=== PATIENT | female | born 1970 | race Caucasian/White ===

== ENCOUNTER 2017-09-01 13:17 | Emergency (ER) | payer SELFPAY ==
[~2017-09-01] VITALS: Ht 152.4 cm; Wt 66.0 kg
[~2017-09-01 13:17] MED LIST: HYDR-3245 PO; VENTOLIN HFA INH
[2017-09-01 13:19] VITALS: BP 126/78
[2017-09-01] MEDS ORDERED: IBUPROFEN 200 MG TABLET ONE (13:46)
[2017-09-01] MEDS ORDERED: ACETAMINOPHEN 325 MG TABLET ONE (13:46)
[2017-09-01] MEDS ORDERED: IBUPROFEN 200 MG TABLET PO ONE (14:00)
[2017-09-01] MEDS ORDERED: ACETAMINOPHEN 325 MG TABLET PO ONE (14:00)
== END 2017-09-01 14:31 | disposition home or self-care (01) ==
LOC: ED 14:00
DX: H92.02 Otalgia, left ear (principal); H66.002 Acute suppurative otitis media without spontaneous rupture of ear drum, left ear; J20.9 Acute bronchitis, unspecified; G43.909 Migraine, unspecified, not intractable, without status migrainosus; J44.0 Chronic obstructive pulmonary disease with (acute) lower respiratory infection; Z88.0 Allergy status to penicillin
CPT/HCPCS: 71020; 99284

== ENCOUNTER 2017-09-30 23:29 | Emergency (ER) | payer MEDICAID, OTHER ==
[2017-09-30] MEDS ORDERED: ALBU0.63 NEB (23:51)
[2017-10-01] MEDS ORDERED: FAMOTIDINE 20 MG TABLET PO ONE
[2017-10-01] MEDS ORDERED: DIPHENHYDRAMINE 25 MG CAPSULE PO ONE
[2017-10-01] MEDS ORDERED: DIPHENHYDRAMINE 25 MG CAPSULE ONE (00:09)
[2017-10-01] MEDS ORDERED: FAMOTIDINE 20 MG TABLET ONE (00:09)
[2017-10-01 00:20] LABS: BASOPHILS # (AUTO) 0.15 x10^3/uL (0-0.1); BASOPHILS % (AUTO) 2 % (0-1); EOSINOPHILS # (AUTO) 0.14 x10^3/uL (0-0.4); EOSINOPHILS % (AUTO) 1 % (1-7); LYMPHOCYTES # (AUTO) 2.02 x10^3/uL (1-3.4); LYMPHOCYTES % (AUTO) 21 % (22-44); MD NO; MEAN CORPUSCULAR HEMOGLOBIN 28.6 pg (27.0-34.8); MEAN CORPUSCULAR HGB CONC 33.2 g/dL (32.4-35.8); MEAN CORPUSCULAR VOLUME 86.1 fL (80-100); MEAN PLATELET VOLUME 9.2 fL (7.4-10.4); MONOCYTES # (AUTO) 0.74 x10^3/uL (0.2-0.8); MONOCYTES % (AUTO) 8 % (2-9); NEUTROPHILS # (AUTO) 6.64 x10^3/uL (1.8-6.8); NEUTROPHILS % (AUTO) 69 % (42-75); PLATELET COUNT 238 x10^3/uL (130-400); RED BLOOD COUNT 5.01 x10^6/uL (3.82-5.3); RED CELL DISTRIBUTION WIDTH 13.9 % (9.6-15.2)
[2017-10-01 00:30] LABS: ALANINE AMINOTRANSFERASE 32 U/L (12-78); ALBUMIN 3.3 g/dL (3.4-5.0); ANION GAP 6 mmol/L (5-15); CALCIUM 8.5 mg/dL (8.5-10.1); CHLORIDE 109 mmol/L (98-107); CREATININE 1.02 mg/dL (0.55-1.02)
[2017-10-01 00:34] LABS: ALKALINE PHOSPHATASE 70 U/L (45-117); BILIRUBIN,TOTAL 0.3 mg/dL (0.2-1.0); TOTAL PROTEIN 6.9 g/dL (6.4-8.2)
[2017-10-01 02:01] LABS: CULTURE INDICATED? YES; MICROSCOPIC INDICATED
[2017-10-01 03:24] VITALS: BP 116/76
== END 2017-10-01 03:44 | disposition home or self-care (01) ==
LOC: ED 23:59
DX: N30.01 Acute cystitis with hematuria (principal); R10.13 Epigastric pain; T78.1XXA Other adverse food reactions, not elsewhere classified, initial encounter; X58.XXXA Exposure to other specified factors, initial encounter; J44.9 Chronic obstructive pulmonary disease, unspecified; Z59.0 Homelessness
CPT/HCPCS: 36415; 71045; 80053; 81001; 83690; 84703; 85025; 87086; 93005; 99285; Q0163

== ENCOUNTER 2018-02-24 16:39 | Emergency (ER) | payer MEDICAID ==
[~2018-02-24] VITALS: Ht 152.4 cm; Wt 59.1 kg
[~2018-02-24 16:39] MED LIST changes: +ALBU0.63 NEB
[2018-02-24] MEDS ORDERED: SODIUM CHLORIDE FLUSH 10ML SYR IVF ONE (17:00)
[2018-02-24] MEDS ORDERED: SODIUM CHLORIDE 0.9% 1,000ML IVBOLUS ONE (17:00)
[2018-02-24 17:19] LABS: BASOPHILS # (AUTO) 0.02 x10^3/uL (0-0.1); BASOPHILS % (AUTO) 1 % (0-1); EOSINOPHILS # (AUTO) 0.02 x10^3/uL (0-0.4); EOSINOPHILS % (AUTO) 1 % (1-7); LYMPHOCYTES # (AUTO) 1.33 x10^3/uL (1-3.4); LYMPHOCYTES % (AUTO) 34 % (22-44); MD NO; MEAN CORPUSCULAR HEMOGLOBIN 29.3 pg (27.0-34.8); MEAN CORPUSCULAR HGB CONC 33.6 g/dL (32.4-35.8); MEAN CORPUSCULAR VOLUME 87.1 fL (80-100); MEAN PLATELET VOLUME 9.5 fL (7.4-10.4); MONOCYTES # (AUTO) 0.54 x10^3/uL (0.2-0.8); MONOCYTES % (AUTO) 14 % (2-9); NEUTROPHILS # (AUTO) 1.96 x10^3/uL (1.8-6.8); NEUTROPHILS % (AUTO) 51 % (42-75); PLATELET COUNT 180 x10^3/uL (130-400); RED BLOOD COUNT 4.76 x10^6/uL (3.82-5.3); RED CELL DISTRIBUTION WIDTH 13.9 % (9.6-15.2)
[2018-02-24 17:29] LABS: ALANINE AMINOTRANSFERASE 35 U/L (12-78); ALBUMIN 3.3 g/dL (3.4-5.0); ANION GAP 10 mmol/L (5-15); CALCIUM 8.1 mg/dL (8.5-10.1); CHLORIDE 110 mmol/L (98-107)
[2018-02-24 17:31] LABS: ALKALINE PHOSPHATASE 66 U/L (45-117); BILIRUBIN,TOTAL 0.3 mg/dL (0.2-1.0); TOTAL PROTEIN 6.5 g/dL (6.4-8.2)
[2018-02-24 17:48] LABS: TROPONIN I < 0.015 ng/mL (0.000-0.045)
[2018-02-24] MEDS ORDERED: POTASSIUM CHLORIDE 20 MEQ TAB.ER.PRT PO ONE (18:30)
[2018-02-24] MEDS ORDERED: POTASSIUM CHLORIDE 20 MEQ TAB.ER.PRT ONE (18:52)
[2018-02-24 18:55] VITALS: BP 104/62
== END 2018-02-24 19:55 | disposition home or self-care (01) ==
LOC: ED 17:14
DX: E86.0 Dehydration (principal); I95.9 Hypotension, unspecified; J44.9 Chronic obstructive pulmonary disease, unspecified
CPT/HCPCS: 36415; 80053; 84484; 85025; 93005; 96360; 96361; 99285; J7030

== ENCOUNTER 2018-02-26 11:39 | Emergency (ER) | payer MEDICAID ==
[~2018-02-26] VITALS: Ht 152.4 cm; Wt 63.6 kg
[2018-02-26] MEDS ORDERED: SODIUM CHLORIDE 0.9% 1,000 ML IV ONE (11:51)
[2018-02-26] MEDS ORDERED: SODIUM CHLORIDE 0.9% 1,000ML IVBOLUS ONE (12:00)
[2018-02-26] MEDS ORDERED: SODIUM CHLORIDE FLUSH 10ML SYR IVF ONE (12:00)
[2018-02-26] MEDS ORDERED: MECLIZINE CHEWABLE 25 MG TAB PO ONE (12:00)
[2018-02-26] MEDS ORDERED: MECLIZINE CHEWABLE 25 MG TAB ONE (12:03)
[2018-02-26 12:25] LABS: BASOPHILS # (AUTO) 0.05 x10^3/uL (0-0.1); BASOPHILS % (AUTO) 1 % (0-1); EOSINOPHILS # (AUTO) 0.06 x10^3/uL (0-0.4); EOSINOPHILS % (AUTO) 1 % (1-7); INTERNATIONAL NORMALIZED RATIO 1.01 (0.93-1.1); LYMPHOCYTES # (AUTO) 2.27 x10^3/uL (1-3.4); LYMPHOCYTES % (AUTO) 35 % (22-44); MD NO; MEAN CORPUSCULAR HGB CONC 33.3 g/dL (32.4-35.8); MEAN CORPUSCULAR VOLUME 87.1 fL (80-100); MEAN PLATELET VOLUME 9.7 fL (7.4-10.4); MONOCYTES # (AUTO) 0.42 x10^3/uL (0.2-0.8); MONOCYTES % (AUTO) 7 % (2-9); NEUTROPHILS # (AUTO) 3.63 x10^3/uL (1.8-6.8); NEUTROPHILS % (AUTO) 56 % (42-75); PLATELET COUNT 190 x10^3/uL (130-400); PROTHROMBIN TIME 10.4 Seconds (9.6-11.5); RED CELL DISTRIBUTION WIDTH 14.1 % (9.6-15.2)
[2018-02-26 12:29] LABS: ALBUMIN 3.4 g/dL (3.4-5.0); ANION GAP 8 mmol/L (5-15); CALCIUM 8.4 mg/dL (8.5-10.1); CHLORIDE 109 mmol/L (98-107)
[2018-02-26 12:38] LABS: ALANINE AMINOTRANSFERASE 31 U/L (12-78); ALKALINE PHOSPHATASE 65 U/L (45-117); BILIRUBIN,TOTAL 0.3 mg/dL (0.2-1.0); CREATININE 0.62 mg/dL (0.55-1.02); TOTAL PROTEIN 6.9 g/dL (6.4-8.2)
[2018-02-26 14:16] VITALS: BP 120/67
== END 2018-02-26 14:29 | disposition home or self-care (01) ==
LOC: ED 13:50
DX: I95.9 Hypotension, unspecified (principal); F17.200 Nicotine dependence, unspecified, uncomplicated; F32.9 Major depressive disorder, single episode, unspecified; J44.9 Chronic obstructive pulmonary disease, unspecified; Z79.899 Other long term (current) drug therapy
CPT/HCPCS: 36415; 71045; 80053; 83605; 85025; 85610; 85730; 93005; 96360; 99285; J7030

== ENCOUNTER 2018-03-03 14:10 | Inpatient (IN) | payer MEDICAID ==
[~2018-03-03] VITALS: Ht 152.4 cm; Wt 61.4 kg
[2018-03-03] MEDS ORDERED: SODIUM CHLORIDE FLUSH 10ML SYR IVF ONE (14:30)
[2018-03-03] MEDS ORDERED: SODIUM CHLORIDE 0.9% 1,000ML IVBOLUS ONE ×2 (14:30→19:30)
[2018-03-03 14:56] LABS: ALANINE AMINOTRANSFERASE 25 U/L (12-78); ALBUMIN 2.9 g/dL (3.4-5.0); ANION GAP 8 mmol/L (5-15); CHLORIDE 110 mmol/L (98-107); CREATININE 0.69 mg/dL (0.55-1.02)
[2018-03-03 15:05] LABS: ALKALINE PHOSPHATASE 56 U/L (45-117); BILIRUBIN,TOTAL 0.2 mg/dL (0.2-1.0); TOTAL PROTEIN 6.2 g/dL (6.4-8.2); TROPONIN I < 0.015 ng/mL (0.000-0.045)
[2018-03-03] MEDS ORDERED: SODIUM CHLORIDE 0.9%, 500ML IVBOLUS ONE (15:30)
[2018-03-03] MEDS ORDERED: POTASSIUM CHLORIDE 20 MEQ TAB.ER.PRT PO ONE (15:30)
[2018-03-03] MEDS ORDERED: POTASSIUM CHLORIDE 20 MEQ TAB.ER.PRT ONE (16:35)
[2018-03-03 18:09] LABS: CULTURE INDICATED? YES; MICROSCOPIC INDICATED
[2018-03-03 19:35] LABS: BASOPHILS # (AUTO) 0.04 x10^3/uL (0-0.1); BASOPHILS % (AUTO) 1 % (0-1); EOSINOPHILS # (AUTO) 0.18 x10^3/uL (0-0.4); EOSINOPHILS % (AUTO) 3 % (1-7); LYMPHOCYTES # (AUTO) 2.57 x10^3/uL (1-3.4); LYMPHOCYTES % (AUTO) 38 % (22-44); MD NO; MEAN CORPUSCULAR HGB CONC 33.2 g/dL (32.4-35.8); MEAN CORPUSCULAR VOLUME 87.3 fL (80-100); MEAN PLATELET VOLUME 10.1 fL (7.4-10.4); MONOCYTES # (AUTO) 0.63 x10^3/uL (0.2-0.8); MONOCYTES % (AUTO) 9 % (2-9); NEUTROPHILS # (AUTO) 3.32 x10^3/uL (1.8-6.8); NEUTROPHILS % (AUTO) 49 % (42-75); PLATELET COUNT 219 x10^3/uL (130-400); RED CELL DISTRIBUTION WIDTH 13.6 % (9.6-15.2)
[2018-03-03] MEDS ORDERED: ONDANSETRON ODT 4 MG PO PRN (20:30)
[2018-03-03] MEDS ORDERED: ONDANSETRON 2MG/ML, 2ML IVPush PRN (20:30)
[2018-03-03] MEDS ORDERED: NICOTINE 14MG/24 HR PATCH.TD24 TD SCH (20:30)
[2018-03-03] MEDS ORDERED: DOCUSATE 100 MG CAPSULE PO PRN (20:30)
[2018-03-03 21:20] VITALS: BP 112/73
[2018-03-03] MEDS: FAMOTIDINE 20 MG/2 ML IVPush SCH (23:37)
[2018-03-03] MEDS: NS + 20MEQ KCL 1,000 ML IV SCH (23:37)
[2018-03-04] VITALS (10 sets, daily range): BP systolic 86–106; BP diastolic 52–69
[2018-03-04 06:09] LABS: CHLORIDE 116 mmol/L (98-107)
[2018-03-04 06:10] LABS: BASOPHILS # (AUTO) 0.04 x10^3/uL (0-0.1); BASOPHILS % (AUTO) 1 % (0-1); EOSINOPHILS # (AUTO) 0.11 x10^3/uL (0-0.4); EOSINOPHILS % (AUTO) 2 % (1-7); LYMPHOCYTES # (AUTO) 2.06 x10^3/uL (1-3.4); LYMPHOCYTES % (AUTO) 32 % (22-44); MD NO; MEAN CORPUSCULAR HEMOGLOBIN 29.4 pg (27.0-34.8); MEAN CORPUSCULAR HGB CONC 33.4 g/dL (32.4-35.8); MEAN PLATELET VOLUME 10.5 fL (7.4-10.4); MONOCYTES # (AUTO) 0.56 x10^3/uL (0.2-0.8); MONOCYTES % (AUTO) 9 % (2-9); NEUTROPHILS # (AUTO) 3.72 x10^3/uL (1.8-6.8); NEUTROPHILS % (AUTO) 57 % (42-75); PLATELET COUNT 178 x10^3/uL (130-400); RED BLOOD COUNT 4.47 x10^6/uL (3.82-5.3)
[2018-03-04 06:22] LABS: ALANINE AMINOTRANSFERASE 64 U/L (12-78); ALBUMIN 2.6 g/dL (3.4-5.0); ALKALINE PHOSPHATASE 49 U/L (45-117); ANION GAP 8 mmol/L (5-15); BILIRUBIN,TOTAL 0.4 mg/dL (0.2-1.0); CALCIUM 7.9 mg/dL (8.5-10.1); CREATININE 0.77 mg/dL (0.55-1.02); TOTAL PROTEIN 5.6 g/dL (6.4-8.2); TROPONIN I < 0.015 ng/mL (0.000-0.045)
[2018-03-04] MEDS: NS + 20MEQ KCL 1,000 ML IV SCH (07:27)
[2018-03-04] MEDS: FAMOTIDINE 20 MG/2 ML IVPush SCH ×2 (08:58→20:16)
[2018-03-04] MEDS: NICOTINE GUM 2 MG BC PRN ×5 (08:59→20:16)
[2018-03-04] MEDS: ACETAMINOPHEN 325 MG TABLET PO PRN ×3 (09:10→20:16)
[2018-03-04] MEDS: CEFTRIAXONE PMX 2GM/50ML 50 ML IV SCH (12:17)
[2018-03-04] MEDS: FLUTICASONE/VILANTEROL 200-25MCG/INH INH SCH (13:10)
[2018-03-04] MEDS: ENOXAPARIN 40 MG/0.4 ML SQ SCH (15:07)
[2018-03-05] VITALS (12 sets, daily range): BP systolic 80–120; BP diastolic 51–71
[2018-03-05] MEDS: ACETAMINOPHEN 325 MG TABLET PO PRN ×3 (04:59→13:09)
[2018-03-05] MEDS: NICOTINE GUM 2 MG BC PRN ×6 (05:05→23:01)
[2018-03-05] MEDS: FLUTICASONE/VILANTEROL 200-25MCG/INH INH SCH (08:56)
[2018-03-05] MEDS: FAMOTIDINE 20 MG/2 ML IVPush SCH ×2 (08:57→20:32)
[2018-03-05] MEDS: CEFTRIAXONE PMX 2GM/50ML 50 ML IV SCH (12:15)
[2018-03-05] MEDS ORDERED: ERGOCALCIFEROL 50,000 UNIT CAPSULE PO SCH (14:00)
[2018-03-05] MEDS: BUTALB/APAP/CAFFEINE 50MG/325MG/40MG PO PRN (14:38)
[2018-03-05] MEDS: ENOXAPARIN 40 MG/0.4 ML SQ SCH (14:41)
[2018-03-05] MEDS: SODIUM CHLORIDE 0.9% 1,000 ML IV SCH ×2 (15:55→22:41)
[2018-03-05] MEDS: FAMOTIDINE 20 MG TABLET PO SCH (20:42)
[2018-03-05] MEDS ORDERED: TEMAZEPAM 15 MG CAPSULE ONE (22:59)
[2018-03-05] MEDS: TEMAZEPAM 15 MG CAPSULE PO PRN (23:01)
[2018-03-06] VITALS (11 sets, daily range): BP systolic 88–115; BP diastolic 56–76
[2018-03-06] MEDS: BUTALB/APAP/CAFFEINE 50MG/325MG/40MG PO PRN ×4 (00:50→21:03)
[2018-03-06] MEDS: NICOTINE GUM 2 MG BC PRN ×5 (01:08→20:56)
[2018-03-06] MEDS: SODIUM CHLORIDE 0.9% 1,000 ML IV SCH ×3 (05:50→19:20)
[2018-03-06] MEDS: FLUTICASONE/VILANTEROL 200-25MCG/INH INH SCH (09:00)
[2018-03-06] MEDS: FAMOTIDINE 20 MG/2 ML IVPush SCH ×2 (09:00→19:43)
[2018-03-06] MEDS: FAMOTIDINE 20 MG TABLET PO SCH ×2 (09:08→20:56)
[2018-03-06] MEDS: CEFTRIAXONE PMX 2GM/50ML 50 ML IV SCH (12:46)
[2018-03-06] MEDS: ENOXAPARIN 40 MG/0.4 ML SQ SCH (14:04)
[2018-03-06] MEDS: TEMAZEPAM 15 MG CAPSULE PO PRN (21:03)
[2018-03-07 01:18] VITALS: BP_SYST 100; BP_SYST 86; BP_SYST 93; BP_DIAS 56; BP_DIAS 61; BP_DIAS 64
[2018-03-07] MEDS: SODIUM CHLORIDE 0.9% 1,000 ML IV SCH ×2 (02:08→10:16)
[2018-03-07 07:10] VITALS: BP 94/61
[2018-03-07 08:42] VITALS: BP 104/75
[2018-03-07 08:46] VITALS: BP 100/67
[2018-03-07 08:49] VITALS: BP 94/60
[2018-03-07] MEDS: FLUTICASONE/VILANTEROL 200-25MCG/INH INH SCH (08:50)
[2018-03-07] MEDS: FAMOTIDINE 20 MG/2 ML IVPush SCH (08:50)
[2018-03-07] MEDS: FAMOTIDINE 20 MG TABLET PO SCH (08:50)
[2018-03-07] MEDS ORDERED: FLUT1BLS INH (10:06)
[2018-03-07] MEDS ORDERED: CEFD300C37 PO (10:06)
[2018-03-07] MEDS ORDERED: ERGO500017 PO (10:06)
[2018-03-07] MEDS: NICOTINE GUM 2 MG BC PRN ×2 (10:15→12:18)
[2018-03-07] MEDS: BUTALB/APAP/CAFFEINE 50MG/325MG/40MG PO PRN (10:49)
[2018-03-07] MEDS: CEFTRIAXONE PMX 2GM/50ML 50 ML IV SCH (12:18)
[2018-03-07 13:00] VITALS: BP 95/62
== END 2018-03-07 16:48 | disposition home or self-care (01) | DRG 312 ==
LOC: ED 18:36 → EDIP 20:11 → 4WST 21:11
PROVIDERS: ADMIT Internal Medicine; ATTEND Internal Medicine
DX: R55 Syncope and collapse (principal); E43 Unspecified severe protein-calorie malnutrition; N39.0 Urinary tract infection, site not specified; F32.9 Major depressive disorder, single episode, unspecified; E55.9 Vitamin D deficiency, unspecified; E86.0 Dehydration; E86.1 Hypovolemia; E87.6 Hypokalemia; F17.210 Nicotine dependence, cigarettes, uncomplicated; F41.9 Anxiety disorder, unspecified; R11.2 Nausea with vomiting, unspecified; M25.561 Pain in right knee; G89.4 Chronic pain syndrome; I95.0 Idiopathic hypotension; J44.9 Chronic obstructive pulmonary disease, unspecified; Z88.0 Allergy status to penicillin
CPT/HCPCS: 36415; 70450; 71046; 80053; 81001; 82306; 82533; 82607; 83735; 84100; 84443; 84484; 85025; 87040; 87077; 87086; 87186; 93005; 96360; 96361; 99285; J0696; J1650; J3480; Q0162; J7030; J7040; S0028

== ENCOUNTER 2018-05-25 17:11 | Emergency (ER) | payer MEDICAID ==
[~2018-05-25] VITALS: Ht 152.4 cm; Wt 60.0 kg
[~2018-05-25 17:11] MED LIST changes: +CEFD300C37 PO; +ERGO500017 PO; +FLUT1BLS INH
[2018-05-25 17:28] VITALS: BP 118/83
[2018-05-25] MEDS ORDERED: ACETAMINOPHEN 325 MG TABLET PO ONE (18:30)
[2018-05-25] MEDS ORDERED: ACETAMINOPHEN 325 MG TABLET ONE (20:27)
== END 2018-05-25 20:44 | disposition home or self-care (01) ==
LOC: ED 20:39
DX: S00.12XA Contusion of left eyelid and periocular area, initial encounter (principal); S20.00XA Contusion of breast, unspecified breast, initial encounter; S80.01XA Contusion of right knee, initial encounter; G43.909 Migraine, unspecified, not intractable, without status migrainosus; J44.9 Chronic obstructive pulmonary disease, unspecified; F32.9 Major depressive disorder, single episode, unspecified; M25.569 Pain in unspecified knee; Y04.8XXA Assault by other bodily force, initial encounter; Y93.89 Activity, other specified; Y99.8 Other external cause status; Y92.89 Other specified places as the place of occurrence of the external cause
CPT/HCPCS: 70100; 70450; 70486; 71046; 72072; 99284